=== PATIENT | female | born 1985 | race Hispanic/Latino ===

== ENCOUNTER 2017-12-08 23:14 | Emergency (ER) | payer OTHER ==
[2017-12-08] MEDS ORDERED: DEXAMETHASONE SOD PHOSPHATE 10MG/ML 1ML VIAL ONE (23:41)
[2017-12-08 23:43] LABS: BASOPHILS % (AUTO) 2.2 % (0.0-5.0); EOSINOPHILS % (AUTO) 1.2 % (0.0-8.0); LYMPHOCYTES % (AUTO) 34.2 % (21.0-51.0); MEAN CORPUSCULAR HEMOGLOBIN 29.1 pg (27.0-33.0); MEAN CORPUSCULAR HGB CONC 33.5 g/dL (32.0-36.0); MEAN CORPUSCULAR VOLUME 86.9 fL (79-99); MONOCYTES % (AUTO) 5.8 % (3.0-13.0); NEUTROPHILS % (AUTO) 56.6 % (40.0-77.0); PLATELET COUNT (AUTO) 326 K/uL (130-400); RED BLOOD CELL COUNT(AUTO) 4.14 MIL/uL (4.00-5.50); RED CELL DISTRIBUTION WIDTH 15.4 % (11.0-15.5); WHITE BLOOD COUNT (AUTO) 8.7 K/uL (4.8-10.8)
[2017-12-08 23:52] LABS: CREATININE 0.8 mg/dL (0.5-1.5); POTASSIUM 3.1 mmol/L (3.5-5.1)
[2017-12-08 23:55] LABS: INR 1.04 (0.85-1.15); PARTIAL THROMBOPLASTIN TIME 25.6 SEC (26.3-35.5); PROTHROMBIN TIME 10.9 SEC (9.6-11.6)
[2017-12-09 00:02] LABS: ALBUMIN 3.7 g/dL (3.5-5.0); BILIRUBIN,TOTAL 0.3 mg/dL (0.2-1.0); TOTAL PROTEIN, SERUM 7.5 g/dL (6.0-8.3)
== END 2017-12-09 00:10 | disposition home or self-care (01) ==
LOC: EDH 23:14
DX: M94.0 Chondrocostal junction syndrome [Tietze] (principal); R11.0 Nausea
CPT/HCPCS: 36415; 80053; 82550; 83874; 84484; 85025; 85610; 85730; 93005; 94761; 96372; 99285; J1100

== ENCOUNTER 2019-01-06 00:42 | Inpatient (IN) | payer SELFPAY ==
[~2019-01-06] VITALS: Ht 152.4 cm; Wt 58.1 kg
[2019-01-06 01:32] LABS: APPEARANCE,URINE Clear (CLEAR); BILIRUBIN,URINE Negative (NEGATIVE); COLOR,URINE Yellow (YELLOW); GLUCOSE, URINE (UA) Negative (NEGATIVE); KETONES,URINE Negative (NEGATIVE); LEUKOCYTE ESTERASE ,URINE Negative (NEGATIVE); NITRATE,URINE Negative (NEGATIVE); OCCULT BLOOD,URINE Negative (NEGATIVE); PROTEIN,URINE Negative (NEGATIVE); UROBILINOGEN,URINE 0.2 mg/dL (0.2-1.0)
[2019-01-06 01:34] LABS: BASOPHILS % (AUTO) 2.8 % (0.0-5.0); EOSINOPHILS % (AUTO) 2.4 % (0.0-8.0); HEMATOCRIT 37.2 % (36-48); LYMPHOCYTES % (AUTO) 36.3 % (21.0-51.0); MEAN CORPUSCULAR HEMOGLOBIN 29.6 pg (27.0-33.0); MEAN CORPUSCULAR HGB CONC 34.1 g/dL (32.0-36.0); MEAN CORPUSCULAR VOLUME 86.8 fL (79-99); MONOCYTES % (AUTO) 6.8 % (3.0-13.0); NEUTROPHILS % (AUTO) 51.7 % (40.0-77.0); PLATELET COUNT (AUTO) 305 K/uL (130-400); RED BLOOD CELL COUNT(AUTO) 4.29 MIL/uL (4.00-5.50); RED CELL DISTRIBUTION WIDTH 13.1 % (11.0-15.5); WHITE BLOOD COUNT (AUTO) 9.3 K/uL (4.8-10.8)
[2019-01-06 01:43] LABS: CREATININE 0.6 mg/dL (0.5-1.5); POTASSIUM 3.8 mmol/L (3.5-5.1)
[2019-01-06 01:47] LABS: ALBUMIN 3.7 g/dL (3.5-5.0); BILIRUBIN,TOTAL 0.2 mg/dL (0.2-1.0); TOTAL PROTEIN, SERUM 7.4 g/dL (6.0-8.3)
[2019-01-06 02:10] LABS: HCG,QUAL RESULT NEGATIVE (NEGATIVE)
[2019-01-06] MEDS ORDERED: ONDANSETRON HCL 4 MG/2 ML VIAL ONE (02:10)
[2019-01-06] MEDS ORDERED: MORPHINE SULFATE 4 MG/1ML SYG ONE (02:10)
[2019-01-06 02:13] LABS: AMPHET/METH SCREEN,URINE NEGATIVE (NEGATIVE); BARBITURATE SCREEN, URINE NEGATIVE (NEGATIVE); BENZODIAZEPINES SCREEN,URINE NEGATIVE (NEGATIVE); CANNABINOID SCREEN,URINE NEGATIVE (NEGATIVE); COCAINE SCREEN,URINE NEGATIVE (NEGATIVE); OPIATE SCREEN,URINE NEGATIVE (NEGATIVE); PHENCYCLIDINE SCREEN,URINE NEGATIVE (NEGATIVE)
[2019-01-06] MEDS ORDERED: ZOSYN 3.375GM+NS 50ML 50 ML IV ONE (04:00)
[2019-01-06] MEDS: SODIUM CHLORIDE 0.9% 1000ML 1,000 ML IV SCH ×2 (04:02→13:29)
[2019-01-06] MEDS ORDERED: ONDANSETRON HCL 4 MG/2 ML VIAL IV PRN (04:15)
[2019-01-06] MEDS ORDERED: ACETAMINOPHEN 325 MG TAB PO PRN ×2 (04:15)
[2019-01-06] MEDS ORDERED: LACTULOSE 20 GM/30 ML UDCUP PO PRN (04:15)
[2019-01-06] MEDS ORDERED: SODIUM CHLORIDE 0.9% 1000ML 1,000 ML IV ONE (05:40)
[2019-01-06 09:00] VITALS: BP 103/59
[2019-01-06] MEDS ORDERED: MAGNESIUM CITRATE 296 ML SOLUTION PO SCH (10:00)
[2019-01-06] MEDS ORDERED: MAGNESIUM CITRATE 296 ML SOLUTION ONE (10:07)
[2019-01-06] MEDS: ENOXAPARIN SODIUM 30 MG/0.3 ML SQ SCH (10:14)
[2019-01-06] MEDS: FAMOTIDINE/PF 20 MG/2 ML VIAL IV SCH ×2 (10:14→20:45)
[2019-01-06] MEDS: MORPHINE SULFATE 2 MG/ML 1ML SYG IV PRN (10:15)
[2019-01-06 12:00] VITALS: BP 102/65
[2019-01-06] MEDS: ZOSYN 3.375GM+NS 50ML 50 ML IV SCH ×2 (13:29→20:45)
[2019-01-06 16:00] VITALS: BP 106/60
[2019-01-06 19:28] VITALS: BP 99/58
[2019-01-06 23:50] VITALS: BP 84/45
[2019-01-07] VITALS (18 sets, daily range): BP systolic 99–126; BP diastolic 54–74
[2019-01-07] MEDS: SODIUM CHLORIDE 0.9% 1000ML 1,000 ML IV SCH ×3 (01:29→14:49)
[2019-01-07] MEDS ORDERED: MULT1CAP32 PO (01:42)
[2019-01-07] MEDS: MORPHINE SULFATE 2 MG/ML 1ML SYG IV PRN (03:22)
[2019-01-07] MEDS: METRONIDAZOLE 500MG/100ML BAG 100 ML IV SCH ×3 (05:10→22:02)
[2019-01-07] MEDS: ZOSYN 3.375GM+NS 50ML 50 ML IV SCH ×3 (06:21→21:03)
[2019-01-07 06:22] LABS: BASOPHILS % (AUTO) 0.8 % (0.0-5.0); EOSINOPHILS % (AUTO) 2.4 % (0.0-8.0); HEMATOCRIT 33.1 % (36-48); LYMPHOCYTES % (AUTO) 40.5 % (21.0-51.0); MEAN CORPUSCULAR HEMOGLOBIN 29.8 pg (27.0-33.0); MEAN CORPUSCULAR HGB CONC 33.9 g/dL (32.0-36.0); MEAN CORPUSCULAR VOLUME 88.1 fL (79-99); MONOCYTES % (AUTO) 6.5 % (3.0-13.0); NEUTROPHILS % (AUTO) 49.8 % (40.0-77.0); PLATELET COUNT (AUTO) 268 K/uL (130-400); RED BLOOD CELL COUNT(AUTO) 3.76 MIL/uL (4.00-5.50); RED CELL DISTRIBUTION WIDTH 13.5 % (11.0-15.5); WHITE BLOOD COUNT (AUTO) 5.5 K/uL (4.8-10.8)
[2019-01-07 06:29] LABS: CREATININE 0.7 mg/dL (0.5-1.5); POTASSIUM 3.7 mmol/L (3.5-5.1)
[2019-01-07] MEDS: FAMOTIDINE/PF 20 MG/2 ML VIAL IV SCH ×2 (08:32→21:03)
[2019-01-07] MEDS: ENOXAPARIN SODIUM 30 MG/0.3 ML SQ SCH (09:00)
--- NOTE | 2019-01-07 11:20 | NUR ---
TO OR VIA BED ,WITH OR STAFF . PT EDUCATION REGARDING THE SURGERY. POSTOP. CARE. PT WAS NPO FOR PENDING SURGERY
[2019-01-07] MEDS ORDERED: MIDAZOLAM HCL 1 MG/ML 2ML VIAL ONE (11:35)
[2019-01-07] MEDS ORDERED: ONDANSETRON HCL 4 MG/2 ML VIAL ONE (11:35)
[2019-01-07] MEDS ORDERED: LIDOCAINE HCL MPF 1% 5ML VIAL ONE (11:35)
[2019-01-07] MEDS ORDERED: ROCURONIUM 10MG/1ML SYR 10 MG/ML ML ONE (11:36)
[2019-01-07] MEDS ORDERED: PROPOFOL 10 MG/ML 20ML VIAL IV ONE (11:36)
[2019-01-07] MEDS ORDERED: FENTANYL CITRATE PF 50 MCG/1 ML 2ML VIAL ONE (11:36)
[2019-01-07] MEDS ORDERED: DEXAMETHASONE SOD PHOSPHATE 4 MG/ML 1ML VIAL ONE (11:37)
[2019-01-07] MEDS ORDERED: DiphenhydrAMINE HCL 50 MG/ML VIAL ONE (11:44)
[2019-01-07] MEDS ORDERED: LIDOCAINE HCL 1% MDV 50ML VIAL ONE (11:49)
[2019-01-07] MEDS ORDERED: BUPIVACAINE/PF 0.25% 50ML VIAL IJ ONE (11:49)
[2019-01-07] MEDS ORDERED: NEOSTIGMINE 5MG/5ML SYR IV ONE (11:55)
[2019-01-07] MEDS ORDERED: GLYCOPYRROLATE 1 MG/5 ML SYRINGE ONE (11:55)
[2019-01-07] MEDS ORDERED: HYDRALAZINE HCL 20 MG/ML VIAL ONE (11:55)
[2019-01-07] MEDS ORDERED: MEPERIDINE-PF 25 MG/ML SYG ONE ×2 (12:53→13:02)
--- NOTE | 2019-01-07 13:30 | NUR ---
PT BACK FROM SURGERY ASSESSMENT DONE TO HER ABD. SM DRSG IN PLACE TO HER UPPER MID ABD AND RT SIDE OF ABD . X 4 ABD SOFT BUT TENDER TO TOUCH. REVIEW POSTOP . ORDERS AND CARE. POSTOP V/S STARTED MONITOR . CALL LIGHT IN REACH
[2019-01-07] MEDS ORDERED: MORPHINE SULFATE 2 MG/ML 1ML SYG IV PRN (14:45)
[2019-01-07] MEDS ORDERED: MORPHINE SULFATE 2 MG/ML 1ML SYG ONE (14:46)
--- NOTE | 2019-01-07 17:44 | NUR ---
INItIAL: Met w pt this afternoon to discuss dcp. Pt mentions that she lives w her spouse and 2 children. Prior to admission she was independent w ambulation and ADLs. She does not own any DME or receive services. Per pt she feels safe and comfortable to return home at [place]. CM to continue to follow and wait for Md recommendations. Low income packet provided. Addendum: 01/07/19 at 1746 by FAUSTINO GTZ Amended: Links added.
[2019-01-07] MEDS: OXYCODONE/ACETAMIN 5/325MG TAB PO PRN (21:04)
[2019-01-08] VITALS (9 sets, daily range): BP systolic 100–113; BP diastolic 50–73
[2019-01-08] MEDS: OXYCODONE/ACETAMIN 5/325MG TAB PO PRN ×4 (03:30→23:25)
[2019-01-08] MEDS: SODIUM CHLORIDE 0.9% 1000ML 1,000 ML IV SCH ×3 (03:30→23:25)
[2019-01-08] MEDS: ZOSYN 3.375GM+NS 50ML 50 ML IV SCH ×3 (04:52→19:44)
[2019-01-08 05:17] LABS: BASOPHILS % (AUTO) 0.5 % (0.0-5.0); EOSINOPHILS % (AUTO) 0.3 % (0.0-8.0); HEMATOCRIT 31.3 % (36-48); LYMPHOCYTES % (AUTO) 25.8 % (21.0-51.0); MEAN CORPUSCULAR HEMOGLOBIN 30.3 pg (27.0-33.0); MEAN CORPUSCULAR HGB CONC 34.8 g/dL (32.0-36.0); NEUTROPHILS % (AUTO) 66.4 % (40.0-77.0); PLATELET COUNT (AUTO) 250 K/uL (130-400); RED CELL DISTRIBUTION WIDTH 13.2 % (11.0-15.5); WHITE BLOOD COUNT (AUTO) 9.5 K/uL (4.8-10.8)
--- NOTE | 2019-01-08 05:27 | NUR ---
ACTIVITY Pt up ambulating in the hallway.
[2019-01-08 05:35] LABS: CREATININE 0.6 mg/dL (0.5-1.5); POTASSIUM 3.6 mmol/L (3.5-5.1)
--- NOTE | 2019-01-08 05:38 | NUR ---
RAPID RESPONSE Pt was ambulating with her around the hallway with her and staff stated called them stating pt felt dizzy and almost passed out.Pt was seen being brought in per 2 staff on a wheelchair,appears pale and lethargic.Vs taken and blood sugar as well.[facility] response called. Addendum: 01/08/19 at 0600 by THAIS MIRELES RN RN ns 500 ml bolus given as per alec calhoun order.pt woke up states she's feeling much better.
[2019-01-08] MEDS ORDERED: SODIUM CHLORIDE 0.9% 1000ML 500 ML IV ONE (05:45)
[2019-01-08] MEDS: METRONIDAZOLE 500MG/100ML BAG 100 ML IV SCH ×3 (06:02→21:42)
--- NOTE | 2019-01-08 06:37 | NUR ---
STATUS Pt resting in bed,awake,alert,not in distress.
[2019-01-08] MEDS: FAMOTIDINE/PF 20 MG/2 ML VIAL IV SCH ×2 (08:46→19:43)
[2019-01-08] MEDS: ENOXAPARIN SODIUM 30 MG/0.3 ML SQ SCH (08:52)
--- NOTE | 2019-01-08 11:50 | NUR ---
UP AMBULATING WITH STAFF AND FAMILY AT THE BEDSIDE. TOLERATE WELL
--- NOTE | 2019-01-08 14:55 | NUR ---
DR. BEACH CALLED AND UPDATE OF PT. FAINTING . THIS EARLY AM DURING AMBULATING AND HER ACTIVITY TODAY, DIET AND FREQ .LIQ BM. PT . WILL BE FOLLOW WITH CONT .CARE.
--- NOTE | 2019-01-08 15:00 | NUR ---
PT HAVING LIQ DARK GREEN BM X 3 . COLLECTED STOOLS AND SEND TO LAB . FOR C-DIFF. ..
--- NOTE | 2019-01-08 15:35 | NUR ---
PER ELEVATOR CONSTRUCTOR SUPERVISOR . STAFF . ELADIAKERENBabak . STATED THAT HER MOTHER STATED THAT PT WAS IN THE BATHROOM AND C/O OF CHEST PAIN. AND WENT AWAY . AFTER HAVING A LIQ DARK GREEN STOOL, AND . TOLD HER MOTHER NOT TO LET US KNOW . . WENT FOR ASSESSMENT . PT IN BED ON 2 LITER NC. ASK HER REGARDING . HER CHEST PAIN. STATED THAT SHE FELT A CHEST PAIN TO HER UPPER MID CHEST SIDE, PAIN SCALE OF A 5, AND WENT AWAY,, NO CHEST PAIN. AT THIS MOMENT. PT . TALKING WITH MOTHER . CALL LIGHT IN REACH. .
--- NOTE | 2019-01-08 15:55 | NUR ---
NOTIFY STEEPING PRESS TENDER , THAIS BOWIE OF PT C/O OF CHEST PAIN. WITH ORDERS TO FOLLOW.LABS AND EKGS.
[2019-01-08 16:26] LABS: CREATININE 0.7 mg/dL (0.5-1.5); POTASSIUM 3.4 mmol/L (3.5-5.1)
--- NOTE | 2019-01-08 16:27 | NUR ---
12 LEAD EKG DONE .AND THAIS MARIANOP AWARE OF THE 12 LEAD EKG NO CHANGES LABS PENDING .
[2019-01-08 16:30] LABS: ALBUMIN 2.8 g/dL (3.5-5.0); BILIRUBIN,TOTAL 0.2 mg/dL (0.2-1.0); TOTAL PROTEIN, SERUM 5.7 g/dL (6.0-8.3)
--- NOTE | 2019-01-08 18:10 | NUR ---
UP AMBULATING WITH FAMILY HELP.. DENIES ANY C/O OF CHEST PAIN . OR ABD PAIN .TOLERATE DIET FAIR. STOOLS FREQ . X 4 THIS SHIFT AND STOOL WAS SEND FOR C-DIFF .
[2019-01-08 20:43] LABS: CREATINE KINASE, TOTAL 72 U/L (21-232); MYOGLOBIN 17 ng/mL (10-92); TROPONIN I < 0.04 ng/mL (0.00-0.06)
[2019-01-09 03:00] VITALS: BP 92/54
[2019-01-09] MEDS: ZOSYN 3.375GM+NS 50ML 50 ML IV SCH ×2 (04:54→12:25)
[2019-01-09 05:13] LABS: BASOPHILS % (AUTO) 0.7 % (0.0-5.0); EOSINOPHILS % (AUTO) 1.3 % (0.0-8.0); HEMATOCRIT 29.2 % (36-48); LYMPHOCYTES % (AUTO) 37.3 % (21.0-51.0); MEAN CORPUSCULAR HEMOGLOBIN 29.7 pg (27.0-33.0); MEAN CORPUSCULAR HGB CONC 34.2 g/dL (32.0-36.0); MEAN CORPUSCULAR VOLUME 86.8 fL (79-99); MONOCYTES % (AUTO) 5.9 % (3.0-13.0); NEUTROPHILS % (AUTO) 54.8 % (40.0-77.0); PLATELET COUNT (AUTO) 243 K/uL (130-400); RED BLOOD CELL COUNT(AUTO) 3.36 MIL/uL (4.00-5.50); RED CELL DISTRIBUTION WIDTH 13.4 % (11.0-15.5); WHITE BLOOD COUNT (AUTO) 6.7 K/uL (4.8-10.8)
[2019-01-09] MEDS: METRONIDAZOLE 500MG/100ML BAG 100 ML IV SCH ×2 (06:18→14:00)
--- NOTE | 2019-01-09 06:25 | NUR ---
STATUS Pt slept fairly well.Voiced no complaints of chest pain.
[2019-01-09 07:00] VITALS: BP 107/70
[2019-01-09] MEDS: FAMOTIDINE/PF 20 MG/2 ML VIAL IV SCH (09:19)
[2019-01-09] MEDS: ENOXAPARIN SODIUM 30 MG/0.3 ML SQ SCH (09:19)
[2019-01-09] MEDS: SODIUM CHLORIDE 0.9% 1000ML 1,000 ML IV SCH (09:31)
[2019-01-09 11:00] VITALS: BP 111/60
[2019-01-09] MEDS ORDERED: METR-172 PO (14:15)
--- NOTE | 2019-01-09 15:45 | NUR ---
Attempted to schedule follow up appointment for [address] Fabricio Corey. Left message with answering service.
[2019-01-09 16:00] VITALS: BP 97/69
--- NOTE | 2019-01-09 16:04 | NUR ---
Dr. Fabricio Corey notified of patient's eating pattern, ambulation, slight dizziness this morning and stools x 4 in AM pending C-Diff results. Patient tolerating diet, reports passing gas. Received verbal order to remove dressing and patient may loosen steri strips in shower. If patient no longer dizzy, may follow up in 1 week after discharge.
--- NOTE | 2019-01-09 16:15 | NUR ---
Attempted to schedule follow up appointment with Dr. Fabricio Corey. Left message with answering service.
== END 2019-01-09 17:30 | disposition home or self-care (01) | DRG 419 ==
LOC: EDH 00:42 → EDHIP 00:43 → 3DH 09:03
PROVIDERS: ADMIT Hospitalist; ATTEND Hospitalist
PROC: 0FT44ZZ Resection of Gallbladder, Percutaneous Endoscopic Approach (ICD-10-PCS; principal; 2019-01-07 11:36)
DX: K80.00 Calculus of gallbladder with acute cholecystitis without obstruction (principal); Z82.49 Family history of ischemic heart disease and other diseases of the circulatory system
CPT/HCPCS: 36415; 74018; 74176; 76705; 80048; 80053; 80305; 81003; 81025; 82150; 82550; 82948; 83690; 83874; 84484; 85018; 85025; 87046; 87493; 88304; 93005; G0378; G0480; J0360; J1100; J1200; J1650; J2175; J2250; J2270; J2405; J2543; J2704; J2710; J3010; J3490; J7030

== ENCOUNTER 2020-11-01 22:11 | Emergency (ER) | payer MEDICAID ==
[~2020-11-01] VITALS: Ht 152.4 cm; Wt 65.8 kg
[~2020-11-01 22:11] MED LIST: METR-172 PO; MULT1CAP32 PO
[2020-11-02 03:33] LABS: BASOPHILS % (AUTO) 0.6 % (0.0-5.0); EOSINOPHILS % (AUTO) 1.7 % (0.0-8.0); LYMPHOCYTES % (AUTO) 17.9 % (21.0-51.0); MEAN CORPUSCULAR HEMOGLOBIN 24.8 pg (27.0-33.0); MEAN CORPUSCULAR HGB CONC 32.4 g/dL (32.0-36.0); MEAN CORPUSCULAR VOLUME 76.6 fL (79-99); MONOCYTES % (AUTO) 6.4 % (3.0-13.0); NEUTROPHILS % (AUTO) 73.1 % (40.0-77.0); PLATELET COUNT (AUTO) 424 K/uL (130-400); RED BLOOD CELL COUNT(AUTO) 4.31 MIL/uL (4.00-5.50); WHITE BLOOD COUNT (AUTO) 9.1 K/uL (4.8-10.8)
[2020-11-02 03:41] LABS: CREATININE 0.6 mg/dL (0.5-1.5); POTASSIUM 3.6 mmol/L (3.5-5.1)
[2020-11-02 03:46] LABS: APPEARANCE,URINE Clear (CLEAR); BILIRUBIN,URINE Negative (NEGATIVE); COLOR,URINE Yellow (YELLOW); GLUCOSE, URINE (UA) Negative (NEGATIVE); KETONES,URINE Negative (NEGATIVE); LEUKOCYTE ESTERASE ,URINE Trace (NEGATIVE); NITRATE,URINE Negative (NEGATIVE); OCCULT BLOOD,URINE Large (NEGATIVE); PROTEIN,URINE Negative (NEGATIVE); UROBILINOGEN,URINE 0.2 mg/dL (0.2-1.0)
[2020-11-02 03:46] LABS: ALBUMIN 3.7 g/dL (3.5-5.0); BILIRUBIN,TOTAL 0.3 mg/dL (0.2-1.0); TOTAL PROTEIN, SERUM 7.8 g/dL (6.0-8.3)
[2020-11-02 03:59] LABS: HCG,QUAL RESULT NEGATIVE (NEGATIVE)
[2020-11-02 04:01] LABS: BACTERIA,URINE Rare /HPF (None Seen); RBC,URINE 0-1 /HPF (0-1); SQUAMOUS EPITHELIAL CELL,UR Moderate /HPF (0-2); WBC,URINE 0-1 /HPF (0-1)
[2020-11-02] MEDS ORDERED: KETO10TA2 PO (05:50)
[2020-11-02] MEDS ORDERED: HYDROCODONE/ACETAMINOPHEN 5/325 MG TAB PO ONE (06:00)
[2020-11-02] MEDS ORDERED: PROCHLORPERAZINE 10MG/2ML INJ IM ONE (06:00)
[2020-11-02 06:07] VITALS: BP 116/72
== END 2020-11-02 06:16 | disposition home or self-care (01) ==
LOC: EDH 22:11
DX: G44.209 Tension-type headache, unspecified, not intractable (principal)
CPT/HCPCS: 36415; 70450; 80053; 81001; 81025; 85025; 96372; 99284; J0780